=== PATIENT | female | born 1965 | race Caucasian/White ===

== ENCOUNTER 2017-11-18 11:08 | Emergency (ER) | payer MEDICAID ==
[~2017-11-18] VITALS: Ht 160 cm; Wt 72.6 kg
[2017-11-18 11:25] VITALS: BP 151/83
[2017-11-18] MEDS: LIDOCAINE 1% 500 MG/50 ML VIAL INJ SCH (13:22)
[2017-11-18 14:10] VITALS: BP 142/73
[2017-11-18] MEDS: NEOMYCIN/POLYMYXIN/BACITRACIN 0.9 GM/1 PKT TP ONE (14:19)
== END 2017-11-18 14:18 | disposition home or self-care (01) ==
LOC: MED 11:08
DX: S91.114A Laceration without foreign body of right lesser toe(s) without damage to nail, initial encounter (principal); I10 Essential (primary) hypertension; X58.XXXA Exposure to other specified factors, initial encounter; Y93.89 Activity, other specified; Y92.89 Other specified places as the place of occurrence of the external cause; Y99.8 Other external cause status
CPT/HCPCS: 12001; 73660; 90471; 90715; 99284; J2001; Q0092

== ENCOUNTER 2018-05-08 17:03 | Inpatient (IN) | payer MEDICAID ==
[~2018-05-08] VITALS: Ht 149.9 cm; Wt 66.7 kg
[2018-05-08 17:12] VITALS: BP 167/87
--- NOTE | 2018-05-08 17:17 | NUR ---
VSS, PT AMB TO LOBBY WITH DAUGHTER
--- NOTE | 2018-05-08 18:01 | NUR ---
PATIENT AMBULATED TO BED 7.
[2018-05-08 18:07] LABS: BASOPHILS # (AUTO) 0.1 K/uL (0.00-0.22); EOSINOPHILS # (AUTO) 0.1 K/uL (0-0.4); EOSINOPHILS % (AUTO) 1.3 % (0.0-4.0); HEMATOCRIT 41.8 % (36-48); HEMOGLOBIN 13.9 g/dL (12.0-16.0); LYMPHOCYTES # (AUTO) 1.6 K/uL (2.5-16.5); LYMPHOCYTES % (AUTO) 22.3 % (20.5-51.1); MEAN CORPUSCULAR HEMOGLOBIN 31 pg (27-31); MEAN CORPUSCULAR HGB CONC 33 g/dL (33-37); MEAN CORPUSCULAR VOLUME 92.6 fL (80-94); MONOCYTES # (AUTO) 0.7 K/uL (0.8-1.0); NEUTROPHILS # (AUTO) 4.8 K/uL (1.8-7.7); NEUTROPHILS % (AUTO) 66.4 % (42.2-75.2); PLATELET COUNT (AUTO) 225 K/uL (140-450); RED BLOOD CELL COUNT(AUTO) 4.51 MIL/uL (4.20-5.40); RED CELL DISTRIBUTION WIDTH 13.2 % (11.6-13.7); WHITE BLOOD COUNT (AUTO) 7.3 K/uL (4.8-10.8)
--- NOTE | 2018-05-08 18:10 | NUR ---
C/O EPIGASTRIC PAIN THAT HAS BEEN ONGOING FOR 1 YEAR. PT DRINKS TEAS TO RELIEVE THE PAIN. PAIN WORSENING IN THE PAST FEW DAYS, TEA NOT HELPING ANYMORE. PAIN 6/10, SHARP, COMES AND GOES. PAIN RADIATES TO CHEST. LAST BM TODAY. RX: HTN MEDS HX: HTN
[2018-05-08 18:25] LABS: ANION GAP 8.8 (8-16); CARBON DIOXIDE 31.9 mmol/L (21-32); CREATININE 0.7 mg/dL (0.6-1.3); POTASSIUM 3.7 mmol/L (3.5-5.1)
[2018-05-08 18:29] LABS: ALBUMIN 4.3 g/dL (3.4-5.0); TOTAL BILIRUBIN 0.5 mg/dL (0.0-1.0)
--- NOTE | 2018-05-08 19:26 | NUR ---
REPORT GIVEN TO LUIGI QUINN
--- NOTE | 2018-05-08 19:33 | NUR ---
Dr. Baig evaluating patient at bedside.
[2018-05-08] MEDS ORDERED: KETOROLAC 60 MG/2 ML VIAL IM ONE (19:50)
--- NOTE | 2018-05-08 19:55 | NUR ---
US tech at bedside for exam.
[2018-05-08] MEDS ORDERED: NACL 0.9% 1,000 ML IV ONE (20:25)
[2018-05-08] MEDS ORDERED: DOCUSATE SODIUM 100 MG GELCAP PO PRN (20:30)
[2018-05-08] MEDS ORDERED: MORPHINE SULFATE 2 MG/ML SYR IVP PRN (20:30)
[2018-05-08] MEDS ORDERED: ACETAMINOPHEN 325 MG TAB PO PRN (20:30)
[2018-05-08] MEDS ORDERED: ONDANSETRON 4 MG/2 ML VIAL IM/IVP PRN (20:30)
[2018-05-08] MEDS ORDERED: ATEN50TA8 PO (20:58)
[2018-05-08] MEDS ORDERED: ORE25 PO (20:58)
[2018-05-08 21:08] LABS: APPEARANCE,URINE CLEAR (CLEAR); BILIRUBIN,URINE NEGATIVE (NEGATIVE); COLOR,URINE YELLOW (YELLOW); LEUKOCYTE ESTERASE ,URINE NEGATIVE (NEGATIVE); NITRITE, URINE NEGATIVE (NEGATIVE); UGLUCOSE NEGATIVE (NEGATIVE)
[2018-05-08 21:14] LABS: BARBITURATE, URINE NEG. ng/ml (NEG <=200); BENZODIAZEPINE, URINE NEG. ng/mL (NEG <=200); CANNABINOID, URINE NEG. ng/mL (NEG <=50); COCAINE, URINE NEG. ng/mL (NEG <=300); OPIATE, URINE NEG. ng/mL (NEG <=2000); PHENCYCLIDINE SCREEN,URINE NEG. ng/mL (NEG <=25)
[2018-05-08 21:17] LABS: BLOOD, URINE NEGATIVE (NEGATIVE)
[2018-05-08 21:22] LABS: CHOL/HDL RATIO 3.7 (1-4.5); MAGNESIUM 2.2 mg/dL (1.8-2.4); PHOSPHORUS 3.1 mg/dL (2.5-4.9); THYROID STIMULATING HORMONE 0.92 uIU/mL (0.34-3.74)
--- NOTE | 2018-05-08 21:22 | NUR ---
PT ARRIVED FROM ER VIA WHEELCHAIR. PT IS AMBULATORY. AAOX4. PT DENIES PAIN. IV TO LEFT AC #20, PATENT AND INTACT. SKIN INTACT. ORIENTED PT TO ROOM. DISCUSSED PLAN OF CARE, PT AND FAMILY VERBALIZED UNDERSTANDING. SAFETY PRECAUTION IN PLACE. CALL LIGHT WITHIN REACH.
--- NOTE | 2018-05-08 21:25 | NUR ---
Patient will be admitted to care of Dr. Valladares. Admited to Med Surg. Pt went to room 105-A via wheelchair. Belongings list completed. Report to Hayes MEYERS.
[2018-05-08 21:30] VITALS: BP 138/71
[2018-05-08] MEDS ORDERED: KETOROLAC 30 MG/ML VIAL IVP PRN (21:40)
[2018-05-08] MEDS ORDERED: PIPER/TAZO 3.375GM/D5W PREMIX 50 ML IV SCH (22:00)
--- NOTE | 2018-05-08 22:00 | NUR ---
PT REFUSED SCDS. PT AMBULATES WITHOUT ASSIST.
[2018-05-08] MEDS: DEXT 5% / NACL 0.45% 1,000 ML IV SCH (22:03)
[2018-05-08] MEDS ORDERED: PIPERACILLIN/TAZOBACTAM 3.375 GM VIAL IV ONE (22:15)
--- NOTE | 2018-05-08 22:45 | NUR ---
PT STATED SHE FEELS A LITTLE BIT OF NUMBNESS ON HER LIPS AND WARMTH ON HER FACE. IV ANTIBIOTIC ZOSYN INFUSION DISCONTINUED. PT DENIES SOB, ITCHING, DIZZINESS. DR. GARCIA MADE AWARE. PER MD, SHE WILL D/C ZOSYN AND ORDER ANOTHER ANTIBIOTIC.
--- NOTE | 2018-05-08 23:00 | NUR ---
CHECKED ON PT. PT STATED NO MORE NUMBNESS ON HER LIPS AND HER FACE NOT WARM ANYMORE. PT'S DAUGHTER AT BEDSIDE.
[2018-05-08] MEDS: metroNIDAZOLE 500 MG/NS PREMIX 100 ML IV SCH (23:17)
[2018-05-08] MEDS ORDERED: cefTRIAXone 1,000 MG VIAL ONE (23:20)
[2018-05-09] VITALS: BP 135/58
--- NOTE | 2018-05-09 | NUR ---
V/S TAKEN, WNL. FLAGYL 500 MG IVPB GIVEN WITH NO ADVERSE REACTION NOTED.
--- NOTE | 2018-05-09 01:00 | NUR ---
IV ANTIBIOTIC ROCEPHIN 1GM GIVEN WITH NO ADVERSE REACTION NOTED.
--- NOTE | 2018-05-09 02:40 | NUR ---
PT SLEEPING BUT EASILY AROUSABLE. RESP EVEN AND UNLABORED. NO S/S OF PAIN.
--- NOTE | 2018-05-09 05:00 | NUR ---
PT ASLEEP. NO S/S OF PAIN OR SOB. IVF INFUSING WELL.
[2018-05-09] MEDS: DEXT 5% / NACL 0.45% 1,000 ML IV SCH (06:11)
[2018-05-09] MEDS: metroNIDAZOLE 500 MG/NS PREMIX 100 ML IV SCH ×3 (06:11→23:14)
[2018-05-09] MEDS ORDERED: PIPER/TAZO 3.375GM/D5W PREMIX 50 ML IV SCH (07:00)
--- NOTE | 2018-05-09 07:20 | NUR ---
RECEIVED PT REPORT FROM MANIFEST CLERK RN AT BEDSIDE. PT IS AAOX4. PT DENIES PAIN. IV TO LEFT AC #20, PATENT AND INTACT, INFUSING WELL. SKIN INTACT. DISCUSSED PLAN OF CARE, PT AND FAMILY VERBALIZED UNDERSTANDING. SAFETY PRECAUTION IN PLACE. BED LOCKED IN LOWEST POSITION. CALL LIGHT WITHIN REACH.
--- NOTE | 2018-05-09 07:20 | NUR ---
ENDORSED PT TO DAY SHIFT NURSE. PT IN STABLE CONDITION.
[2018-05-09] MEDS: HYDROcodone/APAP 5/325 MG 1 TAB TAB PO PRN ×2 (07:30→23:17)
[2018-05-09 07:52] LABS: BASOPHILS # (AUTO) 0.1 K/uL (0.00-0.22); BASOPHILS % (AUTO) 1.3 % (0.0-2.0); EOSINOPHILS # (AUTO) 0.1 K/uL (0-0.4); EOSINOPHILS % (AUTO) 2.5 % (0.0-4.0); HEMATOCRIT 41.1 % (36-48); HEMOGLOBIN 13.7 g/dL (12.0-16.0); LYMPHOCYTES # (AUTO) 1.4 K/uL (2.5-16.5); LYMPHOCYTES % (AUTO) 29.4 % (20.5-51.1); MEAN CORPUSCULAR HEMOGLOBIN 31 pg (27-31); MEAN CORPUSCULAR HGB CONC 33 g/dL (33-37); MEAN CORPUSCULAR VOLUME 93.2 fL (80-94); MONOCYTES # (AUTO) 0.5 K/uL (0.8-1.0); MONOCYTES % (AUTO) 11.1 % (1.7-9.3); NEUTROPHILS # (AUTO) 2.7 K/uL (1.8-7.7); NEUTROPHILS % (AUTO) 55.7 % (42.2-75.2); PLATELET COUNT (AUTO) 213 K/uL (140-450); RED BLOOD CELL COUNT(AUTO) 4.41 MIL/uL (4.20-5.40); RED CELL DISTRIBUTION WIDTH 13.2 % (11.6-13.7); WHITE BLOOD COUNT (AUTO) 4.8 K/uL (4.8-10.8)
[2018-05-09 08:00] VITALS: BP 136/75
[2018-05-09 08:00] LABS: ANION GAP 9.6 (8-16); CARBON DIOXIDE 29.9 mmol/L (21-32); CREATININE 0.7 mg/dL (0.6-1.3); POTASSIUM 3.5 mmol/L (3.5-5.1)
[2018-05-09] MEDS: LACTOBACILLUS RHAMNOSUS GG 1 EACH CAP PO SCH (08:20)
[2018-05-09] MEDS: HYDROCHLOROTHIAZIDE 25 MG TAB PO SCH (08:20)
[2018-05-09] MEDS: ATENOLOL 50 MG TAB PO SCH (08:21)
[2018-05-09 08:22] LABS: PHOSPHORUS 3.6 mg/dL (2.5-4.9)
--- NOTE | 2018-05-09 12:30 | NUR ---
PT WENT FOR HIDA SCAN. IV WAS SL.
[2018-05-09] MEDS ORDERED: MORPHINE SULFATE 2 MG/ML SYR IVP SCH (13:10)
--- NOTE | 2018-05-09 14:55 | NUR ---
MORPHINE WAS NOT GIVEN DURING HIDA SCAN. NM TECH SAID PT DID NOT NEED IT. EXPLAINED TO PT ABOUT HER HIDA SCAN RESULT AND POC, LUMBER STRAIGHTENER #[id number]. MADE PT AWARE HIDA SCAN IS NEGATIVE, NO EMERGENCY SX NEED AT THIS TIME. IF SHE WANT TO REMOVE HER GALL BLADDER, SHE CAN F/U WITH DR GOMEZ OUTPT. PT C/O WHEN SHE EATS OR DRINK ORANGE JUICE, SHE FELT PAIN ON HER LEFT ABD AND RADIATING TO CHEST. NOTIFIED DR CRUMP ABOUT PT'S COMPLAINS.
[2018-05-09] MEDS ORDERED: LIDOCAINE VISCOUS 2% 20 ML UDC PO SCH (15:30)
[2018-05-09] MEDS ORDERED: ALUMINUM HYD/MAG/SIMETHICONE 30 ML UDC PO SCH (15:30)
[2018-05-09] MEDS ORDERED: DICYCLOMINE HCL LIQUID 10 MG/5 ML UDC PO SCH (15:30)
[2018-05-09 16:00] VITALS: BP 137/68
--- NOTE | 2018-05-09 19:00 | NUR ---
PT TOLERATED DINNER, DENIES ANY PAIN.
--- NOTE | 2018-05-09 19:10 | NUR ---
REPORT GIVEN TO NIGHT NURSE AT BEDSIDE. PT IN STABLE CONDITION.
--- NOTE | 2018-05-09 19:11 | NUR ---
RECEIVED BEDSIDE REPORT FROM MANNY MEYERS. PT IS FAYEO X4. ON ROOM AIR. IS UKRAINIAN SPEAKING ONLY. IV ON LAC 20G NS INFUSING AT 10ML/HR. LUNG SOUNDS ARE CLEAR. SKIN INTACT. HIDA SCAN DONE TODAY RESULTS ARE NEGATIVE. PLAN OF CARE DISCUSSED WITH PT AND FAMILY. SAFETY MEASURES ARE IN PLACE. CALL LIGHT WITHIN REACH.
[2018-05-09] MEDS ORDERED: ATORVASTATIN 20 MG TAB PO SCH (21:00)
[2018-05-10] VITALS: BP 136/70
--- NOTE | 2018-05-10 00:10 | NUR ---
DUE MEDICATION ADMINISTERED. VS ARE WITHIN NORMAL LIMITS. WILL MEDICATE FOR HEADACHE. CALL LIGHT WITHIN REACH.
--- NOTE | 2018-05-10 01:39 | NUR ---
SLEEPING COMFORTABLY IN BED. NO S/S OF DISTRESS. CALL LIGHT WITHIN REACH.
--- NOTE | 2018-05-10 03:30 | NUR ---
PT SLEEPING COMFORTABLY IN BED. NO S/S OF DISTRESS. CALL LIGHT WITHIN REACH.
[2018-05-10] MEDS: metroNIDAZOLE 500 MG/NS PREMIX 100 ML IV SCH (06:19)
--- NOTE | 2018-05-10 06:19 | NUR ---
DUE MEDICATION ADMINISTERED. ALL NEEDS MET AT THIS TIME. CALL LIGHT WITHIN REACH.
--- NOTE | 2018-05-10 06:44 | NUR ---
PATIENT HAS BEEN SCREENED AND CATEGORIZED MODERATE NUTRITION RISK. PATIENT WILL BE SEEN WITHIN 3-5 DAYS OF ADMISSION. 05/10/18-05/12/18 YEFRI FATIMA MS, RDN
[2018-05-10 07:07] LABS: BASOPHILS % (AUTO) 0.9 % (0.0-2.0); EOSINOPHILS # (AUTO) 0.1 K/uL (0-0.4); EOSINOPHILS % (AUTO) 1.3 % (0.0-4.0); HEMATOCRIT 41.1 % (36-48); HEMOGLOBIN 13.9 g/dL (12.0-16.0); LYMPHOCYTES # (AUTO) 1.3 K/uL (2.5-16.5); LYMPHOCYTES % (AUTO) 25.2 % (20.5-51.1); MEAN CORPUSCULAR HEMOGLOBIN 31 pg (27-31); MEAN CORPUSCULAR HGB CONC 34 g/dL (33-37); MEAN CORPUSCULAR VOLUME 91.9 fL (80-94); MONOCYTES # (AUTO) 0.5 K/uL (0.8-1.0); MONOCYTES % (AUTO) 10.2 % (1.7-9.3); NEUTROPHILS # (AUTO) 3.2 K/uL (1.8-7.7); NEUTROPHILS % (AUTO) 62.4 % (42.2-75.2); PLATELET COUNT (AUTO) 221 K/uL (140-450); RED BLOOD CELL COUNT(AUTO) 4.47 MIL/uL (4.20-5.40); RED CELL DISTRIBUTION WIDTH 13.4 % (11.6-13.7); WHITE BLOOD COUNT (AUTO) 5.1 K/uL (4.8-10.8)
[2018-05-10 07:08] LABS: ANION GAP 11.2 (8-16); CARBON DIOXIDE 30.5 mmol/L (21-32); CREATININE 0.9 mg/dL (0.6-1.3); POTASSIUM 3.7 mmol/L (3.5-5.1)
[2018-05-10 07:18] LABS: PHOSPHORUS 3.7 mg/dL (2.5-4.9)
--- NOTE | 2018-05-10 07:20 | NUR ---
GAVE BEDSIDE REPORT TO MANNY MEYRES. PT ENDORSED IN STABLE CONDITION.
--- NOTE | 2018-05-10 07:20 | NUR ---
RECEIVED PT REPORT FROM [place] ATTENDANT RN AT BEDSIDE. PT IS AAOX4. PT DENIES ANY PAIN. IV TO LEFT AC #20, PATENT AND INTACT, INFUSING WELL. SKIN INTACT. DISCUSSED PLAN OF CARE, PT AND FAMILY VERBALIZED UNDERSTANDING. SAFETY PRECAUTION IN PLACE. BED LOCKED IN LOWEST POSITION. CALL LIGHT WITHIN REACH.
[2018-05-10 08:00] VITALS: BP 113/62
--- NOTE | 2018-05-10 08:35 | NUR ---
PT HAD BREAKFAST,TOLERATED WELL, NO COMPLAINS.
[2018-05-10] MEDS: ATENOLOL 50 MG TAB PO SCH (09:00)
[2018-05-10] MEDS ORDERED: LACT10CA PO (09:29)
[2018-05-10] MEDS ORDERED: SIME80CT70 PO (09:29)
[2018-05-10] MEDS ORDERED: FAMO20TA13 PO (09:29)
[2018-05-10] MEDS ORDERED: FAMOTIDINE 20 MG TAB PO SCH (09:30)
[2018-05-10] MEDS ORDERED: SIMETHICONE 80 MG TAB.CHEW PO SCH (09:30)
[2018-05-10] MEDS: HYDROCHLOROTHIAZIDE 25 MG TAB PO SCH (09:33)
[2018-05-10] MEDS: LACTOBACILLUS RHAMNOSUS GG 1 EACH CAP PO SCH (09:33)
--- NOTE | 2018-05-10 10:30 | NUR ---
DISCHARGE INSTRUCTIONS AND MEDICATION TEACHING GIVEN. INSOLE LIP TURNER [id number]. PT AND PT'S DAUGHTER VERBALIZED UNDERSTANDING. TOLD DR CRUMP THAT PT PREFER RX TO BE SENT TO [facility]. IV DC'D BY U STUDENT, TIP INTACT, PRESSURE APPLIED. PT LEFT IN STABLE CONDITION AND WITH ALL HER BELONGINGS. WRIST BAND REMOVED.
[2018-05-11] MEDS ORDERED: FAMOTIDINE 20 MG TAB PO SCH (09:00)
== END 2018-05-10 11:00 | disposition home or self-care (01) ==
LOC: MED 17:03 → MTU 20:33
PROVIDERS: ADMIT General Practice; ATTEND General Practice
DX: K80.62 Calculus of gallbladder and bile duct with acute cholecystitis without obstruction (principal); E78.5 Hyperlipidemia, unspecified; I10 Essential (primary) hypertension; Z88.0 Allergy status to penicillin
CPT/HCPCS: 36415; 76705; 78445; 80048; 80053; 80305; 81003; 82140; 82150; 83036; 83605; 83690; 83735; 83880; 84100; 84436; 84443; 84484; 85025; 85610; 85730; 87081; 93005; 99285; J0696; J1885; J2543; J3490; J7060; Q0092